=== PATIENT | male | born 1965 | race Caucasian/White ===

== ENCOUNTER 2021-12-23 09:27 | Inpatient (IN) | payer BC ==
[2021-12-23] MEDS ORDERED: LACTATED RINGERS SOLUTION 1000 ML INFUS.BAG IV ONE ×3 (09:59→14:44)
[2021-12-23] MEDS ORDERED: ACETAMINOPHEN 1000 MG/100 ML BAG IVPB ONE (10:05)
[2021-12-23] MEDS ORDERED: ACETAMINOPHEN INJECTION 100 ML IVPB ONE (10:16)
[2021-12-23 10:34] LABS: VENOUS BASE EXCESS 1.3 mmol/L (-2-2); VENOUS PCO2 29.3 mmHg (38-52); VENOUS PH 7.51 (7.310-7.410)
[2021-12-23 10:53] LABS: HEMATOCRIT 35.1 % (35.4-49); HEMOGLOBIN 11.9 GM/dL (11.7-16.9); MCHC 33.8 g/dl (32.0-35.9); MEAN CELL VOLUME 79.9 fl (80-96); MEAN PLT VOLUME 8.6 fl (7.5-11.1); PLATELET COUNT 251 10^3/uL (134-434); RBC 4.39 M/mm3 (4.00-5.60); RDW 14.9 % (11.9-15.9); WHITE BLOOD COUNT 19.3 K/mm3 (4.0-10.0)
[2021-12-23 11:00] LABS: CHLORIDE 101 mmol/L (98-107); SODIUM 135 mmol/L (136-145)
[2021-12-23 11:02] LABS: ANION GAP 13 MMOL/L (8-16); BLOOD UREA NITROGEN 29.3 mg/dL (7-18); CALCIUM 8.1 mg/dL (8.5-10.1); CO2 21 mmol/L (21-32); LIPASE 86 U/L (73-393)
[2021-12-23 11:03] LABS: ALBUMIN 2.5 g/dl (3.4-5.0)
[2021-12-23 11:05] LABS: CREATININE 1.9 mg/dL (0.55-1.3); SGOT/AST 29 U/L (15-37); SGPT/ALT 60 U/L (13-61)
[2021-12-23 11:07] LABS: TOT PROT 6.5 g/dl (6.4-8.2)
[2021-12-23 11:08] LABS: ALK PHOS 126 U/L (45-117)
[2021-12-23 11:20] LABS: GLUCOSE,RANDOM 119 mg/dL (74-106); LACTIC ACID 2.9 mmol/L (0.4-2.0)
[2021-12-23 11:23] LABS: EPI CELLS >36 /uL (0-25.1); HYALINE CASTS 50 /uL (0-3.1); URINE APPEARANCE CLOUDY; URINE BILIRUBIN 2+ (NEGATIVE); URINE COLOR DK YELLOW; URINE GLUCOSE (UA) NEGATIVE (NEGATIVE); URINE KETONE TRACE (NEGATIVE); URINE LEUK ESTERASE 1+ (NEGATIVE); URINE NITRITE POSITIVE (NEGATIVE); URINE PROTEIN 1+ (NEGATIVE); URINE RBC 12 /uL (0-23.9); URINE UROBILINOGEN 4.0 E.U/dl mg/dL (0.2-1.0); URINE WBC 182 /uL (0-25.8)
[2021-12-23] MEDS ORDERED: CEFTRIAXONE 1,000 MG in DEXTROSE 5%-WATER - 50 ML IVPB ONE (11:42)
[2021-12-23] MEDS ORDERED: CEFTRIAXONE 1 GM/50 ML BAG ONE (11:47)
[2021-12-23 11:59] LABS: ANISOCYTOSIS 0; HELMET CELLS 0; HOWELL-JOLLY BODIES 0; MACROCYTOSIS 0; OVALOCYTE 0; ROULEAU 0; SICKELED CELLS 0; TARGET CELLS 0; TEAR DROP CELLS 0; TOXIC GRANULATION 0
[2021-12-23 12:26] LABS: URINE BACTERIA FEW /uL (0-1359)
[2021-12-23 12:54] LABS: LACTIC ACID 5.2 mmol/L (0.4-2.0)
[2021-12-23] MEDS ORDERED: LACTATED RINGERS SOLUTION 1,000 ML/1,000 ML INFUS.BAG IV STA (14:40)
[2021-12-23] MEDS ORDERED: ONDANSETRON 4 MG/2 ML VIAL IVPUSH PRN (16:09)
[2021-12-23] MEDS ORDERED: POTASSIUM CHLORIDE TABS 20 MEQ TABLET.ER (FP) PO ONE (16:14)
[2021-12-23 17:26] LABS: CALCIUM 7.4 mg/dL (8.5-10.1)
[2021-12-23 17:30] LABS: CREATININE 1.2 mg/dL (0.55-1.3)
[2021-12-23] MEDS: HEPARIN NA (PORCINE) 5,000 UNITS/ML 1ML VIAL SQ SCH ×2 (18:06→21:59)
[2021-12-23] MEDS: SODIUM CHLORIDE 1,000 ML IV SCH (18:09)
[2021-12-24] MEDS: HEPARIN NA (PORCINE) 5,000 UNITS/ML 1ML VIAL SQ SCH ×3 (05:46→22:11)
[2021-12-24] MEDS: SODIUM CHLORIDE 1,000 ML IV SCH ×2 (05:51→16:41)
[2021-12-24] MEDS ORDERED: PIPERACILLIN/TAZOB 3.375 GM 3.375 GM in DEXTROSE 5%-WATER - 50 ML IVPB ONE (07:45)
[2021-12-24 07:57] LABS: HEMATOCRIT 32.1 % (35.4-49); HEMOGLOBIN 10.6 GM/dL (11.7-16.9); MCH 26.9 pg (25.7-33.7); MEAN CELL VOLUME 81.4 fl (80-96); MEAN PLT VOLUME 8.6 fl (7.5-11.1); PLATELET COUNT 256 10^3/uL (134-434); RBC 3.95 M/mm3 (4.00-5.60); RDW 14.8 % (11.9-15.9); WHITE BLOOD COUNT 16.3 K/mm3 (4.0-10.0)
[2021-12-24 08:21] LABS: BLOOD UREA NITROGEN 20.5 mg/dL (7-18); CALCIUM 7.5 mg/dL (8.5-10.1)
[2021-12-24] MEDS ORDERED: DEXTROSE 5%-WATER - 50 ML IVPB ONE (10:02)
[2021-12-24] MEDS ORDERED: PIPERACILLIN/TAZOBACTAM 3.375 GM VIAL IVPB ONE (10:02)
[2021-12-24] MEDS ORDERED: DEXTROSE 5%-WATER 100 ML IVPB ONE (14:02)
[2021-12-24] MEDS: CEFTRIAXONE 2 GM in DEXTROSE 5%-WATER 2 GM/100 ML BAG IVPB SCH (16:40)
[2021-12-24] MEDS: ACETAMINOPHEN 325 MG TABLET (FP) PO PRN (22:21)
[2021-12-25] MEDS ORDERED: IBUPROFEN 400 MG TABLET (FP) PO ONE (01:41)
[2021-12-25] MEDS: HEPARIN NA (PORCINE) 5,000 UNITS/ML 1ML VIAL SQ SCH (06:46)
[2021-12-25] MEDS ORDERED: DEXTROSE 5%-WATER 100 ML IVPB ONE (09:45)
[2021-12-25 09:58] LABS: HEMATOCRIT 33.6 % (35.4-49); HEMOGLOBIN 10.7 GM/dL (11.7-16.9); MCHC 31.9 g/dl (32.0-35.9); MEAN CELL VOLUME 81.6 fl (80-96); MEAN PLT VOLUME 8.9 fl (7.5-11.1); PLATELET COUNT 307 10^3/uL (134-434); RBC 4.12 M/mm3 (4.00-5.60); RDW 14.6 % (11.9-15.9)
[2021-12-25] MEDS: CEFTRIAXONE 2 GM in DEXTROSE 5%-WATER 2 GM/100 ML BAG IVPB SCH (10:01)
[2021-12-25 10:02] LABS: INR 1.51 (0.83-1.09); PROTHROMBIN TIME (PATIENT) 17.4 SEC (9.7-13.0)
[2021-12-25] MEDS: SODIUM CHLORIDE 1,000 ML IV SCH (10:03)
[2021-12-25 10:33] LABS: CALCIUM 8.2 mg/dL (8.5-10.1)
[2021-12-25 10:34] LABS: ALBUMIN 2.4 g/dl (3.4-5.0); MAGNESIUM 2.1 mg/dL (1.8-2.4)
[2021-12-25 10:35] LABS: BLOOD UREA NITROGEN 13.5 mg/dL (7-18)
[2021-12-25 10:37] LABS: CREATININE 1.1 mg/dL (0.55-1.3)
[2021-12-25 10:38] LABS: TOT PROT 5.8 g/dl (6.4-8.2)
[2021-12-25 10:39] LABS: BILIRUBIN,TOTAL 0.6 mg/dL (0.2-1)
[2021-12-25 11:11] LABS: ANISOCYTOSIS 0; HELMET CELLS 0; HOWELL-JOLLY BODIES 0; MACROCYTOSIS 0; OVALOCYTE 0; ROULEAU 0; SICKELED CELLS 0; TARGET CELLS 0; TEAR DROP CELLS 0; TOXIC GRANULATION 0
[2021-12-25 15:24] LABS: HIV INTERPRETATION NEGATIVE (NEGATIVE)
[2021-12-26] MEDS: SODIUM CHLORIDE 1,000 ML IV SCH ×2 (01:01→16:37)
[2021-12-26] MEDS ORDERED: ACETAMINOPHEN 1000 MG/100 ML BAG IVPB ONE (02:42)
[2021-12-26] MEDS ORDERED: DEXTROSE 5%-WATER 100 ML IVPB ONE (08:49)
[2021-12-26 09:21] LABS: HEMATOCRIT 32.8 % (35.4-49); HEMOGLOBIN 10.7 GM/dL (11.7-16.9); MCH 26.5 pg (25.7-33.7); MCHC 32.6 g/dl (32.0-35.9); MEAN CELL VOLUME 81.4 fl (80-96); MEAN PLT VOLUME 8.4 fl (7.5-11.1); PLATELET COUNT 282 10^3/uL (134-434); RBC 4.03 M/mm3 (4.00-5.60); RDW 14.9 % (11.9-15.9); WHITE BLOOD COUNT 22.4 K/mm3 (4.0-10.0)
[2021-12-26 09:30] LABS: INR 1.46 (0.83-1.09); PROTHROMBIN TIME (PATIENT) 16.9 SEC (9.7-13.0)
[2021-12-26 09:46] LABS: CALCIUM 8.5 mg/dL (8.5-10.1)
[2021-12-26 09:47] LABS: ALBUMIN 2.5 g/dl (3.4-5.0); BLOOD UREA NITROGEN 10.8 mg/dL (7-18); MAGNESIUM 2.2 mg/dL (1.8-2.4)
[2021-12-26 09:48] LABS: IRON SERUM 35 ug/dL (50-175)
[2021-12-26 09:50] LABS: CREATININE 1.1 mg/dL (0.55-1.3); TOTAL IRON BINDING CAPACITY 192 ug/dL (250-450)
[2021-12-26] MEDS: CEFTRIAXONE 2 GM in DEXTROSE 5%-WATER 2 GM/100 ML BAG IVPB SCH (09:50)
[2021-12-26 09:51] LABS: BILIRUBIN,TOTAL 0.7 mg/dL (0.2-1); TOT PROT 6.1 g/dl (6.4-8.2)
[2021-12-26 10:16] LABS: ANISOCYTOSIS 1+; MACROCYTOSIS 0
[2021-12-26] MEDS ORDERED: SODIUM CHLORIDE 500 ML IV SCH (11:15)
[2021-12-26] MEDS: ACETAMINOPHEN 325 MG TABLET (FP) PO PRN (16:34)
[2021-12-26] MEDS: HEPARIN NA (PORCINE) 5,000 UNITS/ML 1ML VIAL SQ SCH (21:48)
[2021-12-27] MEDS: SODIUM CHLORIDE 1,000 ML IV SCH ×2 (06:17→19:35)
[2021-12-27] MEDS: HEPARIN NA (PORCINE) 5,000 UNITS/ML 1ML VIAL SQ SCH ×3 (06:17→22:05)
[2021-12-27 08:43] LABS: HEMATOCRIT 31.8 % (35.4-49); HEMOGLOBIN 10.6 GM/dL (11.7-16.9); MCH 27.2 pg (25.7-33.7); MCHC 33.3 g/dl (32.0-35.9); MEAN CELL VOLUME 81.6 fl (80-96); MEAN PLT VOLUME 7.9 fl (7.5-11.1); PLATELET COUNT 321 10^3/uL (134-434); RBC 3.89 M/mm3 (4.00-5.60); RDW 15.2 % (11.9-15.9); WHITE BLOOD COUNT 14.6 K/mm3 (4.0-10.0)
[2021-12-27 09:01] LABS: ALBUMIN 2.5 g/dl (3.4-5.0); CALCIUM 8.3 mg/dL (8.5-10.1); MAGNESIUM 2.1 mg/dL (1.8-2.4)
[2021-12-27 09:04] LABS: CREATININE 0.8 mg/dL (0.55-1.3)
[2021-12-27 09:06] LABS: BILIRUBIN,TOTAL 0.5 mg/dL (0.2-1); TOT PROT 5.9 g/dl (6.4-8.2)
[2021-12-27] MEDS ORDERED: DEXTROSE 5%-WATER 100 ML IVPB ONE (09:10)
[2021-12-27 10:08] LABS: CARCINOEMBRYONIC ANTIGEN 0.9 ng/mL (0.0-4.7)
[2021-12-27] MEDS: CEFTRIAXONE 2 GM in DEXTROSE 5%-WATER 2 GM/100 ML BAG IVPB SCH (10:11)
[2021-12-27 11:02] LABS: ANISOCYTOSIS 0; MACROCYTOSIS 0
[2021-12-27] MEDS: ACETAMINOPHEN 325 MG TABLET (FP) PO PRN (17:24)
[2021-12-28] MEDS: HEPARIN NA (PORCINE) 5,000 UNITS/ML 1ML VIAL SQ SCH ×2 (06:52→14:45)
[2021-12-28] MEDS ORDERED: DEXTROSE 5%-WATER 100 ML IVPB ONE (08:57)
[2021-12-28 09:39] VITALS: BMI 30.8
[2021-12-28] MEDS: CEFTRIAXONE 2 GM in DEXTROSE 5%-WATER 2 GM/100 ML BAG IVPB SCH (10:01)
[2021-12-28 11:21] LABS: MCH 26.7 pg (25.7-33.7); MCHC 32.5 g/dl (32.0-35.9); MEAN CELL VOLUME 82.2 fl (80-96); MEAN PLT VOLUME 7.6 fl (7.5-11.1); PLATELET COUNT 406 10^3/uL (134-434); RBC 4.13 M/mm3 (4.00-5.60); RDW 14.7 % (11.9-15.9); WHITE BLOOD COUNT 9.6 K/mm3 (4.0-10.0)
[2021-12-28 11:28] LABS: INR 1.32 (0.83-1.09); PROTHROMBIN TIME (PATIENT) 15.2 SEC (9.7-13.0)
[2021-12-28 11:50] LABS: ALBUMIN 2.5 g/dl (3.4-5.0); BLOOD UREA NITROGEN 6.4 mg/dL (7-18); CALCIUM 8.2 mg/dL (8.5-10.1); MAGNESIUM 2.1 mg/dL (1.8-2.4)
[2021-12-28 11:54] LABS: BILIRUBIN,TOTAL 0.4 mg/dL (0.2-1); TOT PROT 6.1 g/dl (6.4-8.2)
[2021-12-28 12:07] LABS: ANISOCYTOSIS 0; HOWELL-JOLLY BODIES 1+; MACROCYTOSIS 0; TOXIC GRANULATION 2+
[2021-12-29 08:39] LABS: HEMATOCRIT 32.9 % (35.4-49); HEMOGLOBIN 10.7 GM/dL (11.7-16.9); MCH 26.6 pg (25.7-33.7); MCHC 32.6 g/dl (32.0-35.9); MEAN CELL VOLUME 81.6 fl (80-96); MEAN PLT VOLUME 7.3 fl (7.5-11.1); PLATELET COUNT 440 10^3/uL (134-434); RBC 4.03 M/mm3 (4.00-5.60); RDW 14.8 % (11.9-15.9); WHITE BLOOD COUNT 9.2 K/mm3 (4.0-10.0)
[2021-12-29 08:48] LABS: INR 1.26 (0.83-1.09); PROTHROMBIN TIME (PATIENT) 14.5 SEC (9.7-13.0)
[2021-12-29] MEDS ORDERED: DEXTROSE 5%-WATER 100 ML IVPB ONE (08:49)
[2021-12-29 08:56] LABS: CALCIUM 8.6 mg/dL (8.5-10.1)
[2021-12-29 08:57] LABS: ALBUMIN 2.6 g/dl (3.4-5.0); BLOOD UREA NITROGEN 5.3 mg/dL (7-18); MAGNESIUM 1.9 mg/dL (1.8-2.4)
[2021-12-29] MEDS: CEFTRIAXONE 2 GM in DEXTROSE 5%-WATER 2 GM/100 ML BAG IVPB SCH (08:59)
[2021-12-29] MEDS: SODIUM CHLORIDE 1,000 ML IV SCH (09:00)
[2021-12-29 09:02] LABS: BILIRUBIN,TOTAL 0.2 mg/dL (0.2-1); TOT PROT 5.8 g/dl (6.4-8.2)
[2021-12-29] MEDS: ACETAMINOPHEN 325 MG TABLET (FP) PO PRN (09:07)
[2021-12-29] MEDS ORDERED: SODIUM CHLORIDE NASAL SPRAY 44 ML BOTTLE NS PRN (09:18)
[2021-12-29 10:49] LABS: ANISOCYTOSIS 2+; MACROCYTOSIS 1+
[2021-12-29 14:17] VITALS: BP 157/76; PULSE 92; TEMP 98.3
[2021-12-30 13:07] LABS: SARS-CoV-2 NAA Not Detected (Not Detected)
== END 2021-12-29 14:19 | disposition short-term general hospital (02) | DRG 871 ==
LOC: JER 09:27 → JERBED 10:21 → J7W 16:15
PROVIDERS: ADMIT Internal Medicine; ATTEND Nurse Practitioner Acute Care
PROC: 0F9130Z Drainage of Right Lobe Liver with Drainage Device, Percutaneous Approach (ICD-10-PCS; principal; 2021-12-26)
DX: A41.89 Other specified sepsis (principal); K75.0 Abscess of liver; C64.2 Malignant neoplasm of left kidney, except renal pelvis; N39.0 Urinary tract infection, site not specified; R50.9 Fever, unspecified; K76.9 Liver disease, unspecified; R63.4 Abnormal weight loss; Z68.30 Body mass index [BMI] 30.0-30.9, adult; K21.9 Gastro-esophageal reflux disease without esophagitis; R11.2 Nausea with vomiting, unspecified; B96.20 Unspecified Escherichia coli [E. coli] as the cause of diseases classified elsewhere; R16.0 Hepatomegaly, not elsewhere classified
CPT/HCPCS: 36415; 49405; 71045-TC-FY; 74160-TC; 74170-TC; 74176-TC; 76604; 76700-TC; 76705-TC; 80048; 80053; 81003; 82105; 82378; 82550; 82553; 82803; 82962; 83540; 83550; 83605; 83615; 83690; 83735; 84153; 84484; 85025; 85027; 85610; 85651; 86140; 86301; 86682; 86704; 86709; 86753; 86803; 86850; 86900; 86901; 87040; 87070; 87075; 87086; 87102; 87116; 87186; 87205; 87206; 87210; 87340; 87389; 87517; 87804; 93005; 93010; 93308; 99285-25; C1729; C1769; C9803; J1644; Q9967; U0003; U0005